=== PATIENT | male | born 1995 | race Asian ===

== ENCOUNTER → 2020-09-25 | Emergency (ER) | payer MEDICAID ==
[~2020-09-25] VITALS: Ht 165.1 cm; Wt 83.6 kg
[~2020-09-25] MED LIST: CYCL-1 PO; LIDO700A32 TOP; LIDOcaine 1% 30ml preserv. free vial IJ ONE; cyclobenzaprine 10mg tablet PO ONE; ketorolac tromethamine 15mg/ml inj. IM ONE
[2020-09-25 11:15] VITALS: BP 116/56
== END | disposition home or self-care (01) ==
LOC: ER 11:08
DX: S16.1XXA Strain of muscle, fascia and tendon at neck level, initial encounter (principal); Z79.899 Other long term (current) drug therapy; Z98.890 Other specified postprocedural states; X50.0XXA Overexertion from strenuous movement or load, initial encounter; Y93.89 Activity, other specified; Y92.89 Other specified places as the place of occurrence of the external cause; Y99.8 Other external cause status
CPT/HCPCS: 20552; 96372; 99284; J1885